=== PATIENT | female | born 1955 | race Caucasian/White ===

== ENCOUNTER 2017-05-19 13:50 | Day surgery (SDC) | payer BC ==
[2017-05-13 16:42] VITALS: BMI 39.4
[~2017-05-19 13:50] MED LIST: LACTATED RINGERS 1,000 ML IV SCH
[2017-05-19] MEDS ORDERED: LACTATED RINGERS 1,000 ML IV ONE (14:04)
[2017-05-19 14:05] VITALS: RESP 18; TEMP 98
[2017-05-19] MEDS ORDERED: LIDOCAINE 1% 20 ML VIAL (10MG/ML) FOR IV START INTRADERMA ONE (14:05)
[2017-05-19 14:20] LABS: Glucose,Whole Blood 92 mg/dL (75-99)
[2017-05-19] MEDS ORDERED: GLUCAGON 1 MG/ML VIAL ONE (15:08)
[2017-05-19] MEDS ORDERED: PROPOFOL 10 MG/ML 20 ML VIAL IV ONE (15:08)
[2017-05-19] MEDS ORDERED: LIDOCAINE 1% INJ 10MG/ML (20 ML MDV) ONE (15:08)
--- NOTE | 2017-05-19 15:13 | P.GSHP ---
History of Present Illness H&P Date: 05/19/17 Chief Complaint: History of colon polyps This is a 61-year-old female referred from Dr. serrato. Patient was inserted colonoscopy. She's had previous colonoscopies. Her last colonoscopy showed evidence of polyps. She states they were unable to complete her last colonoscopy secondary to tortuosity valve. Patient had a barium enema after that colonoscopy. 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" Smoking Status: Former smoker - Past Family History Father Family Medical History: Cancer Additional Family Medical History / Comment(s): lung Sister(s) Family Medical History: Cancer Additional Family Medical History / Comment(s): brain Mother Family Medical History: Deep Vein Thrombosis (DVT) Medications and Allergies Home Medications Medication Instructions Recorded Confirmed Type Albuterol Inhaler [Ventolin Hfa 1 - 2 puff INHALATION Q6HR PRN 05/13/17 History Inhaler] Albuterol Nebulized [Ventolin 2.5 mg INHALATION Q4H PRN 05/13/17 05/13/17 History Nebulized] Cetirizine HCl [Zyrtec] 10 mg PO DAILY PRN 05/13/17 05/13/17 History EPINEPHrine (Auto Inject) [Epipen] 0.3 mg IM ONCE PRN 05/13/17 05/13/17 History Fexofenadine HCl [Estefany Allergy] 60 mg PO DAILY PRN 05/13/17 05/13/17 History Fluticasone Nasal [place] [Flonase 1 spray EA NOSTRIL BID 05/13/17 05/13/17 History Nasal [place]] Levocetirizine Dihydrochloride 5 mg PO DAILY PRN 05/13/17 05/13/17 History [Xyzal] Losartan [Cozaar] 50 mg PO QAM 05/13/17 05/13/17 History Montelukast [Singulair] 10 mg PO DAILY 05/13/17 05/13/17 History Topiramate [Trokendi Xr] 25 mg PO TID 05/13/17 05/13/17 History Torsemide [Demadex] 20 mg PO DAILY PRN 05/13/17 05/13/17 History metFORMIN HCL [Glucophage] 1,000 mg PO BID 05/13/17 05/13/17 History traMADol HCL [Ultram] 50 mg PO Q4HR PRN 05/13/17 05/13/17 History Allergies Allergy/AdvReac Type Severity Reaction Status Date / Time Antifungal - Imidazole Allergy Dyspnea Verified 05/13/17 15:11 bee venom protein (honey bee) Allergy Anaphylaxis Verified 05/13/17 15:11 Iodinated Contrast- Oral and Allergy Rash/Hives Verified 05/13/17 15:11 IV Dye latex Allergy Dyspnea Verified 05/13/17 15:11 peanut Allergy Rash/Hives Verified 05/13/17 15:11 strawberry Allergy Rash/Hives Verified 05/13/17 15:11 Surgical - Exam Vital Signs Temp Pulse Resp BP Pulse Ox 98.0 F 78 18 152/100 96 05/19/17 14:00 05/19/17 14:00 05/19/17 14:00 05/19/17 14:00 05/19/17 14:00 - General well developed, no distress - Eyes PERRL - ENT normal pinna - Neck no masses - Respiratory normal expansion - Cardiovascular Rhythm: regular - Abdomen Abdomen: soft, non tender Assessment and Plan Assessment: History of colon polyps. We'll perform colonoscopy.
--- NOTE | 2017-05-19 15:30 | P.OP ---
Date of Procedure: 05/19/17 Preoperative Diagnosis: History: Polyps Postoperative Diagnosis: Severe diverticulosis of sigmoid colon Procedure(s) Performed: Colonoscopy Anesthesia: MAC Surgeon: Syed Velazquez Pathology: none sent Condition: stable Disposition: PACU Description of Procedure: Patient's placed on the endoscopy table in the lateral position. She received IV sedation. Digital rectal exam was performed which revealed no abnormalities. The flexible colonoscope was then placed patient anus and passed rotator entire colon. The ileocecal valve lesions. The scope was then withdrawn and the cecum, ascending and transverse colon appeared normal. In the descending colon there was significant diverticular changes. In the sigmoid colon there is extensive diverticular changes with some tortuosity of the sigmoid colon. Scope was then brought back the rectum and this appeared normal. Scope was withdrawn for patient.
[2017-05-19 15:47] VITALS: BP 140/81; PULSE 92
== END 2017-05-19 16:33 | disposition home or self-care (01) ==
LOC: ORWHC2ENDO 13:50
PROVIDERS: ATTEND Surgery
DX: Z12.11 Encounter for screening for malignant neoplasm of colon (principal); K63.89 Other specified diseases of intestine; K57.30 Diverticulosis of large intestine without perforation or abscess without bleeding; J45.909 Unspecified asthma, uncomplicated; I10 Essential (primary) hypertension; Q61.3 Polycystic kidney, unspecified; Z86.010 Personal history of colon polyps; Z91.040 Latex allergy status; Z91.010 Allergy to peanuts; Z91.018 Allergy to other foods; Z91.030 Bee allergy status; Z91.041 Radiographic dye allergy status; Z88.8 Allergy status to other drugs, medicaments and biological substances; Z79.84 Long term (current) use of oral hypoglycemic drugs; Z79.899 Other long term (current) drug therapy; Z85.828 Personal history of other malignant neoplasm of skin; Z87.891 Personal history of nicotine dependence; Z98.51 Tubal ligation status
CPT/HCPCS: G0105; J1610; J2001; J2704; 45378